=== PATIENT | female | born 1985 | race African-American/Black ===

== ENCOUNTER 2020-09-05 18:35 | Emergency (ER) | payer MEDICAID, OTHER | END 2020-09-05 19:11 | disposition left against medical advice (07) | LOC: ER 18:35 | DX: Z53.21 Procedure and treatment not carried out due to patient leaving prior to being seen by health care provider (principal) ==

== ENCOUNTER 2020-09-08 20:53 | Emergency (ER) | payer MEDICAID ==
[~2020-09-08] VITALS: Ht 170.2 cm; Wt 57.0 kg
[2020-09-08 21:24] VITALS: BP 105/69
[2020-09-08] MEDS ORDERED: AMOXICILLIN/POTASSIUM CLAVULANATE 500/125MG TAB PO ONE (21:45)
[2020-09-08] MEDS ORDERED: LORATADINE 10MG TABLET PO SCH (21:45)
[2020-09-08] MEDS ORDERED: FLUTICASONE PROPIONATE 50MCG/SPRAY BOTTLE BOTHNSTRLS SCH (21:45)
== END 2020-09-09 00:13 | disposition left against medical advice (07) ==
LOC: ER 20:53
DX: R06.02 Shortness of breath (principal); Z53.21 Procedure and treatment not carried out due to patient leaving prior to being seen by health care provider

== ENCOUNTER 2022-10-03 13:32 | Emergency (ER) | payer MEDICAID ==
[~2022-10-03] VITALS: Ht 165.1 cm; Wt 70.0 kg
[2022-10-03 13:34] VITALS: BP 96/32
== END 2022-10-03 14:19 | disposition home or self-care (01) ==
LOC: ER 13:37
DX: R42 Dizziness and giddiness (principal); Z59.00 Homelessness unspecified
CPT/HCPCS: 99283